=== PATIENT | male | born 1945 | race Caucasian/White ===

== ENCOUNTER 2022-05-04 12:30 | Day surgery (SDC) | payer MEDICARE, OTHER, SELFPAY ==
[2022-05-04 13:06] VITALS: BP 128/79; PULSE 78; RESP 18; TEMP 36.3; O2SAT 95; BMI 25.9
[2022-05-04 13:30] LABS: COVID19 -Nasal RAPID Negative (Negative)
[2022-05-04] MEDS: LACTATED RINGERS 1,000 ML 200 ML IV (13:55)
--- NOTE | 2022-05-04 14:02 | PM.PREOP ---
Pre-operative Note Interval Note History & Physical reviewed/Exam performed by Physician: Yes Changes to H&P: No
[2022-05-04] MEDS: fentaNYL 250 MCG/5 ML INJ 100 MCG IV (14:11)
[2022-05-04] MEDS: MIDAZOLAM 5 MG/5 ML VIAL 4 MG IV (14:11)
--- NOTE | 2022-05-04 14:27 | PM.OP.COLON ---
Operative Date/Time/Diagnoses Date of procedure: 05/04/22 Time of procedure: 14:27 Pre-op diagnosis: Rectal bleeding Post-op diagnosis: same Procedure & Clinicians Study performed: Colonoscopy Same procedure as scheduled: Yes Indications: Rectal bleeding Surgeon: Armaan Oswald Procedure Notes Procedure in detail: Medications: Conscious sedation using *4mg IV midazolam and 100mcg IV of fentanyl The history and physical was performed/updated and the patient is ASA class is 2. The procedure was discussed in detail with the patient. Potential risks complications including infection, bleeding, missed diagnosis, perforation, need for surgery, and were explained. Their questions were answered and informed consent was obtained. Patient was brought to the procedure room and placed standard monitoring equipment. The patient's vital signs were monitored continuously throughout the entire procedure. Prior to starting time-out was performed. The patient was placed in the left lateral recumbent position. Procedural sedation was administered. Examination began with a thorough inspection of the perianal area there was no evidence of fissures, fistulae, external hemorrhoids or cutaneous malignancy. The colonoscopy scope was then placed into the anal canal and was advanced to the cecum, which was identified by the ileocecal valve, the appendiceal orifice and the confluence of the taenia. The scope was then slowly withdrawn examining colon thoroughly in all directions, irrigating it of any residual stool. FINDINGS 1. No masses or polyps 2. Internal hemorrhoids grade 1 The patient tolerated the procedure well. They will be discharged once criteria are met. The prep was of good/excellent quality. The withdrawl time was 6 minutes. The sedation time was 15 minutes. Specimen(s): none sent Complications: none Impression: Internal hemorrhoids Post-procedure Recommendations: Colonoscopy in 10 years and High fiber diet Disposition: same day surgery
[2022-05-04 14:30] VITALS: BP 102/69; PULSE 63; RESP 16; TEMP 36.3; O2SAT 90
[2022-05-04 14:35] VITALS: BP 99/61; PULSE 65; RESP 16; O2SAT 91
[2022-05-04 14:40] VITALS: BP 100/66; PULSE 68; RESP 16; TEMP 36.9; O2SAT 95
[2022-05-04 14:45] VITALS: BP 97/67; PULSE 73; RESP 15; TEMP 36.9; O2SAT 91
[2022-05-04 14:51] VITALS: BP 112/69; PULSE 69; RESP 16; TEMP 36.7; O2SAT 92
--- NOTE | 2022-05-04 15:15 | SUR.PHASEII ---
Pt left when ready and left in stable condition.
== END 2022-05-04 15:15 | disposition home or self-care (01) ==
PROVIDERS: PCP Student in an Organized Health Care Education/Training Program; Referring Provider Surgery; Visit Provider Surgery
PROC: 0DJD8ZZ Inspection of Lower Intestinal Tract, Via Natural or Artificial Opening Endoscopic (ICD-10-PCS; CPT 45378; principal; 2022-05-04 13:45)
DX: K62.5 Hemorrhage of anus and rectum (principal); Z20.822 Contact with and (suspected) exposure to COVID-19; K64.0 First degree hemorrhoids
CPT/HCPCS: 45378; 87635; 99152; C9803; J2250; J3010